=== PATIENT | male | born 1925 | race African-American/Black ===

== ENCOUNTER → 2016-11-12 | Outpatient (CLI) | payer MEDICARE ==
--- NOTE | 2016-11-12 16:54 | RAD ---
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 The lateral aspect of the humeral head and neck were not completely included on the AP views due to suboptimal patient positioning. No fracture or dislocation is identified. There are mild degenerative changes at the glenohumeral and acromioclavicular articulations. A soft tissue calcification along the posterior aspect of the humeral head is likely of tendinous origin. IMPRESSION: Normal 1. Demineralization. 2. Mild degenerative change. 3. No acute bony abnormality is detected.
== END | disposition home or self-care (01) ==
LOC: RAD 16:09
PROVIDERS: ATTEND Family Medicine
DX: M19.011 Primary osteoarthritis, right shoulder (principal); G89.29 Other chronic pain
CPT/HCPCS: 73030

== ENCOUNTER 2017-07-20 04:02 | Inpatient (IN) | payer OTHER, MEDICARE ==
[2017-07-20] MEDS: IPRATRPIUM/ALBUTEROL 0.5/2.5MG 3 ML NEBU. NEB (04:41)
[2017-07-20 04:52] LABS: ADD MAN DIFF? NO
[2017-07-20 04:56] LABS: BASO % 1 % (0-3); EOS # 0.1 x10^3/uL (0.0-0.7); EOS % 1 % (0-3); HEMATOCRIT 34.8 % (39.0-53.0); HEMOGLOBIN 11.5 g/dL (13.0-17.5); LYMPH % 35 % (24-48); MEAN CORPUSCULAR HEMOGLOBIN 26 pg (25-35); MEAN CORPUSCULAR HGB CONC 33 g/dL (31-37); MEAN CORPUSCULAR VOLUME 80 fL (79-100); MONO # 0.9 x10^3/uL (0.0-1.1); MONO % 15 % (0-9); NEUT # 2.7 x10^3uL (1.8-7.7); NEUT % 48 % (31-73); PLATELET COUNT 334 x10^3/uL (140-400); RED BLOOD COUNT 4.35 x10^6/uL (4.30-5.70); RED CELL DISTRIBUTION WIDTH 16.6 % (11.5-14.5); WHITE BLOOD COUNT 5.7 x10^3/uL (4.0-11.0)
[2017-07-20 05:13] LABS: ANION GAP 10 (6-14); BLOOD UREA NITROGEN 15 mg/dL (8-26); BUN/CREATININE RATIO 11 (6-20); CALCIUM 8.8 mg/dL (8.5-10.1); CARBON DIOXIDE 27 mmol/L (21-32); CHLORIDE 107 mmol/L (98-107); CREATININE 1.4 mg/dL (0.7-1.3); GFR 57.7; GLUCOSE 97 mg/dL (70-99); POTASSIUM 4.2 mmol/L (3.5-5.1); SODIUM 144 mmol/L (136-145)
[2017-07-20 05:18] LABS: ALBUMIN 2.8 g/dL (3.4-5.0); ALBUMIN/GLOBULIN RATIO 0.7 (1.0-1.7); ALK PHOS 68 U/L (46-116); ALT (SGPT) 17 U/L (16-63); AST (SGOT) 17 U/L (15-37); TOTAL BILIRUBIN 0.4 mg/dL (0.2-1.0); TOTAL PROTEIN 6.7 g/dL (6.4-8.2)
[2017-07-20 05:20] LABS: LACTIC ACID 1.6 mmol/L (0.4-2.0)
[2017-07-20 05:25] LABS: TROPONINI 0.312 ng/mL (0.000-0.055)
[2017-07-20 05:26] LABS: NT-PRO BNP 8717 pg/mL (0-449)
[2017-07-20 05:26] LABS: CKMB INDEX 1.8 % (0-4); CKMB MASS 1.6 ng/mL (0.0-3.6); CREATINE KINASE 89 U/L (39-308)
[2017-07-20] MEDS: FUROSEMIDE 20 MG/2 ML VIAL. IVP (05:45)
[2017-07-20] MEDS ORDERED: FUROSEMIDE 40 MG/4 ML VIAL. IVP (05:45)
[2017-07-20 09:31] LABS: TROPONINI 0.305 ng/mL (0.000-0.055)
[2017-07-20 09:32] LABS: CHOLESTEROL 124 mg/dL (0-200); HDLC 62 mg/dL (40-60); LDLC 49 mg/dL (0-100); NON-HDL CHOLESTEROL 62 mg/dL (0-129); TRIGLYCERIDES 67 mg/dL (0-150); VLDLC 13 mg/dL (0-40)
[2017-07-20 09:41] LABS: THYROID STIM HORMONE (TSH) 1.526 uIU/mL (0.358-3.74)
[2017-07-20] MEDS: PANTOPRAZOLE IV PUSH 40 MG VIAL. IVP (10:21)
[2017-07-20] MEDS: IV DEXTROSE 5%-LACT RINGERS 1,000 ML IV ×2 (10:24→21:04)
[2017-07-20] MEDS: GADOBUTROL 10 MMOL/10 ML VIAL IV (11:00)
[2017-07-20 11:52] LABS: TROPONINI 0.286 ng/mL (0.000-0.055)
[2017-07-20] MEDS: BARIUM SULFATE 40% (APPLE) 148 GM PWD. PO (13:00)
[2017-07-20] MEDS ORDERED: LABETALOL 20 MG/4 ML DISP.SYRIN. IVP (14:45)
[2017-07-20 16:23] LABS: POC GLUCOSE 158 mg/dL (70-99)
[2017-07-20] MEDS: CLOPIDOGREL BISULFATE 75 MG TABLET PO (17:00)
[2017-07-20] MEDS ORDERED: POLYETHYLENE GLYCOL 3350 17 GM PACKET. PO (17:30)
[2017-07-20] MEDS ORDERED: ACETAMINOPHEN 325 MG TABLET. PO (21:00)
[2017-07-20] MEDS: ATORVASTATIN CALCIUM 10 MG TABLET. PO ×2 (21:00)
[2017-07-20] MEDS: MEMANTINE 10 MG TABLET. PO ×2 (21:00)
[2017-07-20] MEDS: DICLOFENAC SODIUM 1% TOPICAL GEL 100GM TUBE. TP (21:05)
[2017-07-20 21:36] LABS: VITAMIN-B12 390 pg/mL (247-911)
[2017-07-21] MEDS: PANTOPRAZOLE 40 MG TABLET.DR. PO (05:10)
[2017-07-21] MEDS: CLOPIDOGREL BISULFATE 75 MG TABLET PO (08:00)
[2017-07-21] MEDS: CETIRIZINE HCL 10 MG TABLET. PO (09:00)
[2017-07-21] MEDS: buPROPion XL 150 MG TAB.ER.24H. PO (09:00)
[2017-07-21] MEDS: DONEPEZIL HCL 10 MG TABLET. PO (09:00)
[2017-07-21] MEDS: ASPIRIN ENTERIC COATED 81 MG TABLET.DR. PO (09:00)
[2017-07-21] MEDS: MEMANTINE 10 MG TABLET. PO ×2 (09:00→21:00)
[2017-07-21] MEDS ORDERED: NON FORMULARY ITEM (Memantine HCl/Donepezil HCl (Namzaric 28 mg-10 mg Capsule) 1 EACH) PO (09:00)
[2017-07-21] MEDS: traMADol 50 MG TABLET PO (09:00)
[2017-07-21] MEDS: risperiDONE 0.25 MG TABLET. PO (09:00)
[2017-07-21] MEDS: DICLOFENAC SODIUM 1% TOPICAL GEL 100GM TUBE. TP ×4 (09:00→21:24)
[2017-07-21] MEDS: FINASTERIDE 5 MG TABLET. PO (09:00)
[2017-07-21 11:11] LABS: ANION GAP 9 (6-14); BLOOD UREA NITROGEN 18 mg/dL (8-26); CALCIUM 9.4 mg/dL (8.5-10.1); CARBON DIOXIDE 30 mmol/L (21-32); CHLORIDE 108 mmol/L (98-107); CREATININE 1.4 mg/dL (0.7-1.3); GFR 57.7; GLUCOSE 92 mg/dL (70-99); POTASSIUM 4.1 mmol/L (3.5-5.1); SODIUM 147 mmol/L (136-145)
[2017-07-21] MEDS: IV DEXTROSE 5%-LACT RINGERS 1,000 ML IV (12:40)
[2017-07-21] MEDS: ANTI-COAG MONITOR BY PHARMACY. MC (13:11)
[2017-07-21] MEDS ORDERED: METOPROLOL TARTRATE 5 MG/5 ML VIAL. IVP (16:45)
[2017-07-21] MEDS: METOPROLOL SUCC 24HR ER 25 MG TAB.ER.24H. PO (17:00)
[2017-07-21] MEDS: ATORVASTATIN CALCIUM 10 MG TABLET. PO (21:00)
[2017-07-22] MEDS: PANTOPRAZOLE 40 MG TABLET.DR. PO (07:30)
[2017-07-22] MEDS: DONEPEZIL HCL 10 MG TABLET. PO (09:00)
[2017-07-22] MEDS: MEMANTINE 10 MG TABLET. PO ×2 (09:00→21:49)
[2017-07-22] MEDS: traMADol 50 MG TABLET PO (09:00)
[2017-07-22] MEDS: risperiDONE 0.25 MG TABLET. PO (09:00)
[2017-07-22] MEDS: buPROPion XL 150 MG TAB.ER.24H. PO (09:00)
[2017-07-22] MEDS: CETIRIZINE HCL 10 MG TABLET. PO (09:00)
[2017-07-22] MEDS: FINASTERIDE 5 MG TABLET. PO (09:00)
[2017-07-22] MEDS: CLOPIDOGREL BISULFATE 75 MG TABLET PO (10:23)
[2017-07-22] MEDS: DICLOFENAC SODIUM 1% TOPICAL GEL 100GM TUBE. TP ×4 (10:40→21:59)
[2017-07-22] MEDS: ONDANSETRON ODT 4 MG TAB.RAPDIS. PO (13:17)
[2017-07-22] MEDS: ASPIRIN 300 MG SUPP.RECT PR (13:18)
[2017-07-22] MEDS: METOPROLOL SUCC 24HR ER 25 MG TAB.ER.24H. PO (13:18)
[2017-07-22 20:12] LABS: MRSA BY PCR Negative (Negative)
[2017-07-22] MEDS: ATORVASTATIN CALCIUM 10 MG TABLET. PO (21:48)
[2017-07-23] MEDS: PANTOPRAZOLE 40 MG TABLET.DR. PO (08:28)
[2017-07-23] MEDS: ONDANSETRON ODT 4 MG TAB.RAPDIS. PO (08:28)
[2017-07-23] MEDS: ASPIRIN 300 MG SUPP.RECT PR (09:00)
[2017-07-23] MEDS: buPROPion XL 150 MG TAB.ER.24H. PO (11:47)
[2017-07-23] MEDS: METOPROLOL SUCC 24HR ER 25 MG TAB.ER.24H. PO (11:48)
[2017-07-23] MEDS: traMADol 50 MG TABLET PO (11:50)
[2017-07-23] MEDS: risperiDONE 0.25 MG TABLET. PO (11:50)
[2017-07-23] MEDS: FINASTERIDE 5 MG TABLET. PO (11:50)
[2017-07-23] MEDS: DONEPEZIL HCL 10 MG TABLET. PO (11:50)
[2017-07-23] MEDS: MEMANTINE 10 MG TABLET. PO (11:50)
[2017-07-23] MEDS: CLOPIDOGREL BISULFATE 75 MG TABLET PO (11:50)
[2017-07-23] MEDS: CETIRIZINE HCL 10 MG TABLET. PO (11:50)
[2017-07-23] MEDS: DICLOFENAC SODIUM 1% TOPICAL GEL 100GM TUBE. TP ×2 (11:51→13:00)
[2017-07-23] MEDS: ASPIRIN CHEWABLE 81 MG TABLET. PO (12:55)
== END 2017-07-23 16:50 | disposition hospice, home (50) | DRG 64 ==
LOC: ER 04:02 → ED HOLD 05:38 → 2 SOUTH 16:24
DX: I63.9 Cerebral infarction, unspecified (principal); G93.41 Metabolic encephalopathy; E11.22 Type 2 diabetes mellitus with diabetic chronic kidney disease; G20 Parkinson's disease; I13.0 Hypertensive heart and chronic kidney disease with heart failure and stage 1 through stage 4 chronic kidney disease, or unspecified chronic kidney disease; I42.9 Cardiomyopathy, unspecified; F03.90 Unspecified dementia, unspecified severity, without behavioral disturbance, psychotic disturbance, mood disturbance, and anxiety; E78.00 Pure hypercholesterolemia, unspecified; E78.5 Hyperlipidemia, unspecified; I25.10 Atherosclerotic heart disease of native coronary artery without angina pectoris; I27.20 Pulmonary hypertension, unspecified; I48.91 Unspecified atrial fibrillation; I50.9 Heart failure, unspecified; J44.9 Chronic obstructive pulmonary disease, unspecified; M17.0 Bilateral primary osteoarthritis of knee; N18.3 Chronic kidney disease, stage 3 (moderate); Z66 Do not resuscitate; Z79.82 Long term (current) use of aspirin; Z82.3 Family history of stroke; Z82.49 Family history of ischemic heart disease and other diseases of the circulatory system; Z83.3 Family history of diabetes mellitus; Z86.73 Personal history of transient ischemic attack (TIA), and cerebral infarction without residual deficits; Z87.891 Personal history of nicotine dependence; Z95.1 Presence of aortocoronary bypass graft; Z99.3 Dependence on wheelchair; F32.9 Major depressive disorder, single episode, unspecified; Z88.1 Allergy status to other antibiotic agents; Z60.2 Problems related to living alone; I25.2 Old myocardial infarction; I65.29 Occlusion and stenosis of unspecified carotid artery; Z51.5 Encounter for palliative care; I45.4 Nonspecific intraventricular block
CPT/HCPCS: 36415; 70450; 70551; 71045; 74230; 80048; 80053; 80061; 82553; 82607; 82962; 83605; 83735; 83880; 84443; 84484; 85025; 87040; 87641; 92526-GN; 92611-GN; 93005; 93306; 93880; 94640; 95816; 96361; 96372; 96374; 96375; 99291; 99291-25; C9113; J1650; J7620; Q0162